=== PATIENT | male | born 1985 | race Caucasian/White ===

== ENCOUNTER 2025-02-18 12:10 | Emergency (ER) | payer OTHER ==
--- OUTSIDE RECORDS SUMMARY | 2025-02-18 12:14 | XMS REPORT | Continuity of Care Document ---
Author Name Unknown Address [address] [facility] [address] [place] [address] [facility] [place] Address [address] [facility]. [address] [place] [address] Care Team Providers Care Rub[employer] Sh[employer] Repairer Name Role Phone Pcp, Patient Does Not Have A Primary Care Physic wally Radiology Attending Clinician Unavailable Andrews Stoll MD Attending Clinician [phone] Campaigns, Generic Provider Attending Clinician Unavailable ERICK MACHADO Attending Clinician UnavailTOD Hernandez Attending Clinician Unavailable TOD ROMERO Attending Clinician Unavailable Tod Galvan Attending Clinician [phone] ERICK MACHADO Admitting Clinician TOD Tomas Admitting Clinician Unavailable Payers Payer Name Policy Type Policy Number Effective Date Expirati on Date Source Allergies, Adverse Reactions, Alerts Allergy Name Allergy Type Status Severity Reaction(s) Onset Date Inactive Date Treating Clinician Comments Source NO KNOWN ALLERGIE S Drug Class Active [facility] Social History Social Habit Start Date Stop Date Quantity Comments Source Sexual orientation U [facility] Sex assigned at 1985 00:00:00 1985 00:00:00 [facility] Smoking Status Start Date Stop Date Source Tobacco smoking consumption unknown [facility] Medications Ordered Medication Name Filled Medication Name Start Date Stop Date Current Medication? Ordering Clinician Indication Dosage Frequency Signature (SIG) Comments Components Source methocarbam oL (ROBAXIN) tablet 500 mg 01-14 03:30: 00 01-14 02:51 :00 No 500mg 500 mg, Oral, ONCE, 1 dose, On Sun01/13/25 at 2230, Routine [facility] proCHLORper azine (COMPAZINE) 10 mg in NaCl 0.9% (NS) piggyback proCHLORper azine (COMPAZINE) 10 mg in NaCl 0.9% (NS) piggyback 01-14 01:30: 00 01-14 01:45 :00 Yes 10mg 10 mg, IV Piggyback, at 100 mL/hr Administer over 30 Minutes, ONCE, 1 dose, On Sun01/13/25 at 2030, Routine [facility] NaCl 0.9% (NS) bolus infusion 1,000 mL 01-14 00:45: 00 01-14 01:00 :00 No 1000mL at 999 mL/hr, 1,000 mL, IV Infusion, ONCE, 1 dose, On Sun01/13/25 at 1945, DEBORAH [facility] metoclopram shanika HCl (REGLAN) injection 10 mg 01-14 00:00: 00 01-14 00:07 :00 No 10mg 10 mg, Slow IV Push, ONCE, 1 dose, On Sun01/13/25 at 1900, DEBORAH [facility] albuterol sulfate HFA 90 mcg/actuati on aerosol inhaler 01-13 22:35: 55 Yes 2{puff} Inhale 2 Puffs every 6 hours as needed for Wheezing or Shortness of Breath. [facility] omeprazole 40 mg capsule 01-13 22:35: 55 Yes 40mg Take 1 capsule by mouth in the morning and 1 capsule in the evening. [facility] cetirizine 10 mg tablet 01-13 22:35: 55 Yes 10mg Take 1 tablet by mouth in the morning. [facility] cholecalcif krupa, vitamin D3, 10 mcg/2 mL (400 unit/2 mL) Drop 01-13 22:35: 55 Yes 50ug Take 50 mcg by mouth in the morning. [facility] DULoxetine 60 mg capsule 01-13 22:35: 55 Yes 120mg Take 2 capsules by mouth in the morning. [facility] fenofibrate 48 mg tablet 01-13 22:35: 55 Yes 48mg Take 1 tablet by mouth in the morning. [facility] fluticasone furoate 50 mcg/actuati on DsDv 01-13 22:35: 55 Yes 50ug Inhale 50 mcg in the morning. [facility] gabapentin ER 300 mg tablet, extended release 24 hr 01-13 22:35: 55 Yes 300mg Take 1 tablet by mouth every 6 hours. [facility] Magnesium Oxide 420 mg Tab 01-13 22:35: 55 Yes 420mg Take 420 mg by mouth in the morning and 420 mg in the evening. [facility] meloxicam 15 mg tablet 01-13 22:35: 55 Yes 15mg Take 1 tablet by mouth in the morning. [facility] mirtazapine 15 mg tablet 01-13 22:35: 55 Yes 15mg Take 1 tablet by mouth at bedtime. [facility] montelukast 10 mg tablet 01-13 22:35: 55 Yes 10mg Take 1 tablet by mouth at bedtime. [facility] QUEtiapine 300 mg tablet 01-13 22:35: 55 Yes 300mg Take 1 tablet by mouth at bedtime. [facility] sumatriptan 100 mg tablet 01-13 22:35: 55 Yes 100mg Take 1 tablet by mouth as needed for Migraine. [facility] topiramate 100 mg tablet 01-13 22:35: 55 Yes 100mg Take 1 tablet by mouth in the morning and 1 tablet in the evening. 100mg morning... 150mg night [facility] methocarbam oL 500 mg tablet 01-13 00:00: 00 01-21 04:59 :00 Yes [id number] 500mg Take 1 tablet by mouth 4 times daily for 7 days. [facility] methocarbam oL (ROBAXIN) tablet 1,000 mg 08-10 19:45: 00 08-10 19:47 :00 No 1000mg 1,000 mg, Oral, ONCE, 1 dose, On 08/10/24 at 1345, DEBORAH [facility] HYDROcodone -acetaminop hen (NORCO 5) tablet 1 tablet 08-10 19:45: 00 08-10 19:47 :00 No 1{tbl} 1 tablet, Oral, ONCE, 1 dose, On 08/10/24 at 1345, DEBORAH [facility] methocarbam oL 500 mg tablet 08-10 00:00: 00 01-13 00:00 :00 No [id number] 1000mg Take 2 tablets by mouth 2 (two) times daily as needed (muscle spasms). [facility] traMADoL 50 mg tablet 08-10 00:00: 00 08-18 05:59 :00 No [id number] 50mg Take 1 tablet by mouth every 8 (eight) hours as needed for Pain (scale 7-10) for up to 7 days. Indication s: acute pain [facility] predniSONE 50 mg tablet 08-10 00:00: 00 08-16 05:59 :00 No [id number] 50mg Take 1 tablet by mouth in the morning for 5 days. [facility] Vital Signs Vital Name Observation Time Observation Value Comments S ource Systolic blood pressure 2025-01-14 03:30:00 115 mm[Hg] [facility] Diastolic blood pressure 2025-01-14 03:30:00 85 mm[Hg] [facility] Heart rate 2025-01-14 03:30:00 67 /min [facility] Body temperature 2025-01-14 03:30:00 37 Loan [facility] Respiratory rate 2025-01-14 03:30:00 21 /min [facility] Oxygen saturation in Arterial blood by Pulse oximetry 2025-01-14 03:30:00 98 /min [facility] Body height 2025-01-13 23:21:00 175.3 cm [facility] Body weight 2025-01-13 23:21:00 108.863 kg [facility] BMI 2025-01-13 23:21:00 35.44 kg/m2 [facility] Systolic blood pressure 2024-08-10 21:59:37 137 mm[Hg] [facility] Diastolic blood pressure 2024-08-10 21:59:37 75 mm[Hg] [facility] Heart rate 2024-08-10 21:59:37 82 /min [facility] Respiratory rate 2024-08-10 21:59:37 18 /min [facility] Oxygen saturation in Arterial blood by Pulse oximetry 2024-08-10 21:59:37 98 /min [facility] Body temperature 2024-08-10 19:29:00 36.78 Loan [facility] Body height 2024-08-10 19:29:00 175.3 cm [facility] Body weight 2024-08-10 19:29:00 108.863 kg [facility] BMI 2024-08-10 19:29:00 35.44 kg/m2 [facility] Procedures Procedure Date / Time Performed Performing Clinicia n Source MR LUMBAR SPINE WO CONTRAST 2025-02-11 21:08:30 Requisition, Paper [facility] MR CERVICAL SPINE WO CONTRAST 2025-02-11 21:03:21 Requisition, Paper [facility] CT HEAD WO CONTRAST 2025-01-14 02:14:33 Ashley Machado [facility] URINALYSIS 2025-01-14 01:02:00 Erick Machado [facility] LACTIC ACID WHOLE BLOOD 2025-01-14 00:03:00 Erick Machado [facility] LIPASE 2025-01-13 23:57:00 Erick Machado [facility] TROPONIN I 2025-01-13 23:57:00 Erick Machado [facility] COMP. METABOLIC PANEL ([id number]) 2025-01-13 23:57:00 Erick Machado [facility] CBC WITH DIFF 2025-01-13 23:57:00 [facility] 2025-01-13 23:57:00 Althea Machado ho [facility] CT SINUS WO CONTRAST 2025-01-13 13:30:38 Narcisa Coker [facility] XR SPINE THORACIC 2 VW 2024-08-10 20:12:47 Allegra Romero cca [facility] XR RIBS 3 VW RIGHT 2024-08-10 20:12:47 Tod Romero [facility] XR LUMBAR SPINE 3 VW 2024-08-10 20:12:47 Diana Romero [facility] Encounters Start Date/Time End Date/Time Encounter Type Admission Type Attending Clinicians Care Facility Care Department Encounter ID Source 2025-02-11 14:50:33 2025-02-11 23:59:00 Hospital Encounter Radiology Radiology [facility] [id number] [id number] [id number] [id number] [facility] 2025-02-11 14:50:24 2025-02-11 23:59:00 Hospital Encounter Radiology Radiology [facility] [id number] 350.1.13.10 [id number] [id number] [facility] 2025-02-05 10:21:47 2025-02-05 23:59:00 Hospital Encounter Andrews Stoll [facility] [id number] [id number] [id number] [id number] [facility] 2025-01-21 00:00:00 2025-01-21 11:06:01 Letter (Out) Campaigns, Generic Provider Campaigns, Generic Provider [facility] (ERICKA) [id number] [id number] 4.2.7.2.686 [id number] [facility] 2025-01-13 18:27:00 2025-01-13 22:35:00 Emergency X ERICK MACHADO [facility] [id number] [facility] 2025-01-13 07:32:30 2025-01-13 18:26:00 Hospital Encounter Radiology [facility]iology [facility] [id number] 350.1.13.10 [id number] [id number] [facility] 2024-08-20 00:00:00 2024-08-20 11:18:01 Letter (Out) Campaigns, Generic Provider Campaigns, Generic Provider [facility] (ERICKA) [id number] 350.1.13.10 4.2.7.2.686 [id number] [facility] 2024-08-10 13:30:00 2024-08-10 16:02:00 Emergency X TOD ROMERO ERICCA [facility] [id number] [facility] 2024-08-10 13:30:00 2024-08-10 16:02:00 Emergency Tod Romero [facility] [id number] 350.1.13.10 4.2.7.2.686 [id number] [facility] 2024-02-21 16:26:08 2024-02-21 16:26:08 Outpatient SFA SFA [id number] Hemant Greene 2024-01-30 09:34:53 2024-01-30 09:34:53 Outpatient SFA SFA [id number] Hemant Greene 2024-01-16 09:45:17 2024-01-16 09:45:17 Outpatient SFA SFA [id number] Hemant Greene 2024-01-02 09:45:42 2024-01-02 09:45:42 Outpatient SFA SFA [id number] Hemant Greene 2023-12-17 14:29:16 2023-12-17 14:29:16 Outpatient SFA SFA [id number] Hemant Greene Results Test Description Test Time Test Comments Results Result Comments Source MR Cervical spine wo contrast 04:08:48 MR CERVICAL SPINE WO CONTRAST HISTORY: 39 years old Male with low neck pain and spasms COMPARISON: None TECHNIQUE: Multiplanar and multisequence MRI imaging of the cervical spinewas obtained without the administration of intravenous contrast FINDINGS: Straightening of normal cervical lordosis is noted. . The vertebral bodiesare normal in height and in normal alignment. The cervical cord is normalin caliber and demonstrates normal signal intensity. Small C7 vertebral body hemangioma seen. The background marrow signal isotherwise unremarkable. Unremarkable atlantodental and atlantoaxialintervals. C2/C3: No significant spinal canal stenosis or neural foraminal narrowing. C3/C4: Tiny central disc protrusion with minimal bilateral uncovertebralspurs with no significant spinal canal stenosis or neural foraminalnarrowing. C4/C5: Shallow posterior disc osteophyte complex with right uncovertebraland bilateral facet joint arthrosis with no significant spinal canalstenosis or neural foraminal narrowing. C5/C6: Mild bilateral facet joint arthrosis. No significant spinal canalstenosis or neural foraminal narrowing. C6/C7: Mild facet joint arthrosis with no significant spinal canal stenosisor neural foraminal narrowing. C7/T1: Mild facet joint arthrosis with no significant spinal canal stenosisor neural foraminal narrowing. The visualized brain and cervical soft tissues are unremarkable. [facility] MR Lumbar spine wo contrast 21:26:57 EXAM: MR LUMBAR SPINE WO CONTRAST HISTORY: Lumbar radiculopathy. TECHNIQUE: MRI of lumbar spine was performed on 1.5 Yashira withoutintravenous contrast. COMPARISON: Lumbar spine radiograph dated 08/10/2024. FINDINGS: Normal lumbar lordosis. The vertebral bodies are normal in height andalignment. The background bone marrow signal is unremarkable. The conus medullaris terminates at L1 and is normal. Cauda equina nerveroots are unremarkable. Prominent Schmorl's node at the superior endplate of L4 vertebral body.Lumbar discs are otherwise normal in height and signal intensity. At L1-L2, no high-grade spinal canal stenosis or significant neuralforaminal narrowing. At L2-L3, no high-grade spinal canal stenosis or significant neuralforaminal narrowing. At L3-L4, mild bilateral facet arthrosis. No high-grade spinal canalstenosis or significant neural foraminal narrowing. At L4-L5, bilateral facet arthrosis and ligamentum flavum thickening. Nohigh-grade spinal canal stenosis or significant neural foraminal narrowing. At L5-S1, small central disc protrusion. No high-grade spinal canalstenosis or significant neural foraminal narrowing. The paraspinal soft tissues are unremarkable. [facility] CT Head wo contrast 02:48:28 CT HEAD WO CONTRAST HISTORY: Headache, sudden, severe Ordering physician: ERICK MACHADO COMPARISON: None. TECHNIQUE: Routine CT of the brain without IV contrast. ? CT scan was performed according to ALARA (as low as reasonably achievable)principle. RESULT: ?There is no evidence of large intraparenchymal hemorrhage, extra-axialfluid collection, or acute territorial infarct. There is no mass effect ormidline shift. There is no depressed cranial fracture. The visualized extracranial softtissues are grossly normal. ? The ventricles and sulci are within normal limits. The visualized paranasal sinuses and mastoid air cells are grossly clear. ? [id number] 15:48:04CT SINUS WO CONTRAST HISTORY: Preoperative assessment for deviated nasal septum COMPARISON: None. TECHNIQUE: CT images of the paranasal sinuses obtained without IV contrast.Multiplanar reformats submitted for review. FINDINGS: The frontal sinuses are clear. The frontal recesses are patent. The anterior air cells are clear.Small retention cyst at the left maxillary sinus. The maxillary sinuses areotherwise clear. The ostiomeatal units are patent. The lamina papyracea are intact. The roof of the ethmoids is symmetric. Thesphenoid septum is deviated to the right. The sphenoid sinuses are clear. The sphenoethmoidal recesses are patent. The posterior ethmoidal air cells are clear. The nasal septum is mildly deviated to the right. The turbinate morphologyis unremarkable. The nasal cavity is clear.[facility] vw [id number] 21:46:32XR RIBS 3 VW RIGHT INDICATION: fall, diffuse back pain, worse on R COMPARISON: None FINDINGS: No acute displaced rib fracture. The lungs are adequately expanded and clear. No pleural effusion orpneumothorax. Cardiomediastinal silhouette is unremarkable. No focalopacities. Cholecystectomy clips.[facility] Thor[facility] 2 [id number] 20:56:16XR THORACIC SPINE 2 VW, XR LUMBAR SPINE 3 VW INDICATION: fall, diffuse back pain COMPARISON: None FINDINGS: Mild kyphosis centered at the thoracolumbar junction. Chronic-appearingmild anterior wedging of the T8-T11 vertebra are seen along the kyphosis. The thoracolumbar vertebral bodies are otherwise normal in height andalignment. Mild thoracolumbar degenerative changes are present. A metallic BBis incidentally noted overlying the lumbar spine on thethoracic radiographs.[facility] 3 [id number] 20:56:16XR THORACIC SPINE 2 VW, XR LUMBAR SPINE 3 VW INDICATION: fall, diffuse back pain COMPARISON: None FINDINGS: Mild kyphosis centered at the thoracolumbar junction. Chronic-appearingmild anterior wedging of the T8-T11 vertebra are seen along the kyphosis. The thoracolumbar vertebral bodies are otherwise normal in height andalignment. Mild thoracolumbar degenerative changes are present. A metallic BBis incidentally noted overlying the lumbar spine on thethoracic radiographs.[facility] Notes Date/Time Note Provider Source 2025-01-13 22:34:54 Awake, alert oriented X4, respiratory even and unlabored,skin w/d color appropriate for race, moves all ext well, pt encouraged to follow up with pcp and or return as needed. Pt given printed and verbal discharge instructions regarding headache and muscle spasms. Patient verbalized understanding and signature obtained, patient denies any other concerns. Prescriptions provided. Discussed Robaxin side affects and to avoid driving/operating machinery/or engaging in activities requiring alertness while taking. Advised to seek medical attention for new/prolonged/worsening of symptoms. No adverse reaction to meds given in ER noted upon discharge. Pt ambulated to the lobby with steady gait. Kareen Hudson RN [facility] 2025-01-13 18:53:53 Patient has brain lesions and has been diagnosed with MS recently. Eli Wilson RN [facility] 2025-01-13 18:21:32 Pt arrived ambulatory without assist. Pt c/o double vision, tingling in hand and feet, dizzy, and migraine. Pt not able to take Toradol because of other medications he takes at home. Beth Barnhart RN [facility] 2025-01-13 18:12:00 [facility] Emergency Department Note Patient Name: Jef Alberto Date of : 1985 39 year old male Treatment Room: [facility] Primary Care Physician: PATIENT DOES NOT HAVE A PCP Patient Escorted by: Self [9] Mode of Arrival: Personal means [1] EMS Treatment Prior to ED Arrival: NURSE SPECIALIST treatment: None Travel and Exposure Screening: Symptoms Does patient have any of these symptoms?: (not recorded) Exposure Screening Has patient had contact with someone with a communicable disease in the last month?: (not recorded) Diseases exposed to:: (not recorded) Is Patient ?: (not recorded) Exposure Date: (not recorded) Chief Complaint: Chief Complaint Patient presents with MIGRAINE Dizziness History of Present Illness: History of Present Illness Patient is a 39-year-old male who presents to the ED for evaluation and treatment due to frontal headache, tingling in the fingers and muscle spasm. He reports his pain is 10/10 on pain severity scale. Patient also reports symptoms accompanied by dizziness. He has not pain in the past and he has been scheduled for an MRI of the brain. Patient is alert oriented x 4. He denies chest pain, shortness of breath, blurry vision, abdominal pain. No History provided by: Patient road crossing guard used: No MIGRAINE Location: Frontal Quality: Spasm Severity: Severe Timing: Constant Progression: Worsening Chronicity: Recurrent Relieved by: Nothing Associated symptoms: no abdominal pain, no chest pain, no diarrhea, no fatigue, no fever, no nausea, no rhinorrhea, no shortness of breath and no vomiting Dizziness Associated symptoms: weakness Associated symptoms: no blood in stool, no chest pain, no diarrhea, no nausea, no palpitations, no shortness of breath and no vomiting Past Medical History/Immunizations: No past medical history on file. Tetanus received in last 5 years: Unknown Allergies: No Known Allergies Past Social History: Substance & Sexual Activity No substance use or sexual activity history on file. Past Surgical History: No past surgical history on file. Review of Systems: Review of Systems Constitutional: Negative for appetite change, fatigue and fever. HENT: Negative for rhinorrhea. Eyes: Negative. Respiratory: Negative for shortness of breath. Cardiovascular: Negative for chest pain and palpitations. Gastrointestinal: Negative for abdominal pain, blood in stool, diarrhea, nausea and vomiting. Musculoskeletal: Negative for back pain. Skin: Negative for color change and pallor. Neurological: Positive for dizziness, weakness and numbness. Physical Exam: Physical Exam ED Triage Vitals [01/13/25 1821] Weight 108.9 kg (240 lb) Actual or estimated Estimated by patient/family report Height 1.753 m (5' 9") BP 134/90 Pulse 84 Resp 18 Temp 37.1 ?C (98.8 ?F) Temp source Oral SpO2 100 % Measured on Room air Physical Exam Vitals and nursing note reviewed. Constitutional: General: He is in acute distress. Appearance: He is well-developed. He is obese. Eyes: Pupils: Pupils are equal, round, and reactive to light. Cardiovascular: Rate and Rhythm: Normal rate. Heart sounds: Normal heart sounds. Pulmonary: Effort: Pulmonary effort is normal. No respiratory distress. Breath sounds: No wheezing. Abdominal: General: There is no distension. Palpations: There is no mass. Tenderness: There is no abdominal tenderness. There is no guarding or rebound. Musculoskeletal: General: Normal range of motion. Cervical back: Normal range of motion. Skin: General: Skin is warm and dry. Neurological: Mental Status: He is alert and oriented to person, place, and time. Cranial Nerves: Cranial nerves 2-12 are intact. Sensory: Sensation is intact. Motor: Motor function is intact. Coordination: Coordination is intact. Radiology: CT Head wo contrast Final Result CT HEAD WO CONTRAST HISTORY: Headache, sudden, severe Ordering physician: ERICK MACHADO COMPARISON: None. TECHNIQUE: Routine CT of the brain without IV contrast. CT scan was performed according to ALARA (as low as reasonably achievable) principle. RESULT: There is no evidence of large intraparenchymal hemorrhage, extra-axial fluid collection, or acute territorial infarct. There is no mass effect or midline shift. There is no depressed cranial fracture. The visualized extracranial soft tissues are grossly normal. The ventricles and sulci are within normal limits. The visualized paranasal sinuses and mastoid air cells are grossly clear. There is disconjugate gaze. IMPRESSION No evidence of acute intracranial process. RL: [id number] Lab Results: Lab Results CBC WITH DIFF - Abnormal Result Value Ref Range WBC 7.93 4.20 - 10.70 10*3/?L RBC 4.87 4.26 - 5.52 10*6/?L HGB 14.3 12.2 - 16.4 g/dL HCT 43.2 38.4 - 49.3 % MCV 88.7 81.7 - 95.6 fL MCH 29.4 26.1 - 32.7 pg MCHC 33.1 31.2 - 35.0 g/dL RDW-SD 42.4 38.5 - 51.6 fL RDW-CV 13.0 12.1 - 15.4 % PLT 311 150 - 328 10*3/?L MPV 9.4 (*) 9.8 - 13.0 fL NRBC/100 WBC 0.0 0.0 - 10.0 /100 WBCs NRBC x10 3 <0.01 10*3/?L GRAN MAT (NEUT) % 57.8 % IMM GRAN % 0.80 % LYMPH % 30.3 % MONO % 8.2 % EOS % 2.0 % BASO % 0.9 % GRAN MAT x10 3 (ANC) 4.59 1.99 - 6.95 10*3/uL IMM GRAN x10 3 0.06 0.00 - 0.06 10*3/uL LYMPH x10 3 2.40 1.09 - 3.23 10*3/uL MONO x10 3 0.65 0.36 - 1.02 10*3/uL EOS x10 3 0.16 0.06 - 0.53 10*3/uL BASO x10 3 0.07 0.01 - 0.09 10*3/uL REACT LYMPHS Moderate URINALYSIS - Abnormal APPEARANCE Cloudy (*) Clear COLOR Yellow Yellow PH 8.0 4.8 - 8.0 SP GRAVITY 1.013 1.003 - 1.030 GLU U QUAL Normal Normal BLOOD Negative Negative KETONES Negative Negative PROTEIN Negative Negative UROBILIN Normal Normal BILIRUBIN Negative Negative NITRITE Negative Negative LEUK PATEL Negative Negative RBC/HPF <1 0 - 3 HPF WBC/HPF 0 0 - 5 HPF BACTERIA Negative Negative AMORPHOUS Moderate (*) Rare HPF COMP. METABOLIC PANEL (41070) - Abnormal NA 141 135 - 145 mmol/L K 4.0 3.5 - 5.0 mmol/L CL 108 98 - 108 mmol/L CO2 TOTAL 23 23 - 31 mmol/L AGAP 10 2 - 16 BUN 17 7 - 23 mg/dL GLUCOSE 92 70 - 110 mg/dL CREATININE 1.35 (*) 0.60 - 1.25 mg/dL TOTAL BILI 0.4 0.1 - 1.1 mg/dL CALCIUM 9.0 8.6 - 10.6 mg/dL T PROTEIN 7.4 6.3 - 8.2 g/dL ALBUMIN 4.6 3.5 - 5.0 g/dL ALK PHOS 41 34 - 122 U/L ALTv 27 5 - 50 U/L AST(SGOT) 26 13 - 40 U/L eGFR 68.9 mL/min/1.73m2 LIPASE - Normal LIPASE 117 0 - 220 U/L TROPONIN I - Normal TROPONIN I 0.000 <=0.034 ng/mL N-TERMINAL PRO-BNP - Normal NT-proBNP <20 <=125 pg/mL LACTIC ACID WHOLE BLOOD - Normal LACTIC ACID 1.12 0.50 - 2.20 mmol/L LACTIC ACID WITH 2 HOUR REFLEX EKG: If EKG completed, see Procedure Note. Orders and Treatments: Orders Placed This Encounter Procedures CT Head wo contrast CBC WITH DIFF URINALYSIS COMP. METABOLIC PANEL (50493) LIPASE TROPONIN I N-TERMINAL PRO-BNP LACTIC ACID WITH 2 HOUR REFLEX Lactic Acid Whole Blood Orders Placed This Encounter Medications NaCl 0.9% (NS) bolus infusion 1,000 mL DISCONTD: ketorolac (TORADOL) injection 30 mg metoclopramide HCl (REGLAN) injection 10 mg albuterol sulfate HFA 90 mcg/actuation aerosol inhaler omeprazole 40 mg capsule cetirizine 10 mg tablet cholecalciferol, vitamin D3, 10 mcg/2 mL (400 unit/2 mL) Drop DULoxetine 60 mg capsule fenofibrate 48 mg tablet fluticasone furoate 50 mcg/actuation DsDv gabapentin ER 300 mg tablet, extended release 24 hr Magnesium Oxide 420 mg Tab meloxicam 15 mg tablet mirtazapine 15 mg tablet montelukast 10 mg tablet QUEtiapine 300 mg tablet sumatriptan 100 mg tablet topiramate 100 mg tablet proCHLORperazine (COMPAZINE) 10 mg in NaCl 0.9% (NS) piggyback methocarbamoL (ROBAXIN) tablet 500 mg methocarbamoL 500 mg tablet First Provider Eval: ED Events Date/Time Event User Comments 01/13/251822 Medical Screening Begins ERICK MACHADO -- 01/13/251822 First Provider Evaluation ERICK MACHADO -- ED COURSE ED Course as of 01/13/252210Jan 13, [id number] Discussed findings and plan of care with patient. Patient will be discharged home with a muscle relaxant and advised to adequately rehydrate. The complication, contraindication of medications, pathophysiology of symptoms, and treatment plans were discussed with the patient / family, who verbalized understanding. Return to ER if your symptoms should worsen or fail to improve within 72 hours. The care provided in the emergency room was for acute problems. You should follow up with your primary care provider within 72 hours. Take all your medications as prescribed. Make sure you are staying adequately hydrated. The patient was discussed with the supervising MD on shift at this time. The supervisor inspection room agreed with the patient plan as documented in the chart. If the supervising MD felt the need he also reviewed the labs, chart and saw the patient on his own. Please see MD supervision signature. [FI] 2207 CT Head wo contrast No evidence of acute intracranial process. [FI] ED Course User Index [FI] Erick Machado FNP Diagnosis/Impression as of 01/13/252210 Headache in front of head Muscle spasm Results Procedures: Procedures MDM: Assessment & Plan Medical Decision Making The patient is resting comfortably and feels better, is alert, interactive and in no distress. The repeat examination is unremarkable and benign. The patient is neurologically intact, has a normal mental status and is ambulatory in the ED. The history, exam, diagnostic testing nd the patient's current condition do not suggest meningitis, stroke, sepsis, subarachnoid hemorrhage, intracranial bleeding, encephalitis or other significant pathology that would warrant further testing, continued ED treatment, admission, neurological consultation, or other specialist evaluation at this point. The vital signs have been stable. The patient's condition is stable and appropriate for discharge. The patient will pursue further outpatient evaluation with the primary care physician or other designated or consulting physician as indicated in the discharge instructions. Amount and/or Complexity of Data Reviewed Labs: ordered. Radiology: ordered. Decision-making details documented in ED Course. Risk Prescription drug management. Flowsheet Documentation: LOC: 0 Alert: Keenly Responsive LOC QUESTIONS: 0 Answers Both Questions Correctly LOC COMMANDS: 0 Performs Both Tasks Correctly BEST GAZE: 0 Normal VISUAL: 0 No Visual Loss FACIAL PALSY: 0 Normal MOTOR ARM-LEFT: 0 No Drift MOTOR ARM-RIGHT: 0 No Drift MOTOR LEG-LEFT: 0 No Drift MOTOR LEG-RIGHT: 0 No Drift LIMB ATAXIA: 0 Absent SENSORY: 0 Normal BEST LANGUAGE: 0 No Aphasia DYSARTHRIA: 0 Normal EXTINCTION AND INATTENTION (FORMERLY NEGLECT): 0 No Abnormalty STROKE SCALE TOTAL SCORE: 0 NIH STROKE SCALE LOC: 0 Alert: Keenly Responsive LOC QUESTIONS: 0 Answers Both Questions Correctly LOC COMMANDS: 0 Performs Both Tasks Correctly BEST GAZE: 0 Normal VISUAL: 0 No Visual Loss FACIAL PALSY: 0 Normal MOTOR ARM-LEFT: 0 No Drift MOTOR ARM-RIGHT: 0 No Drift MOTOR LEG-LEFT: 0 No Drift MOTOR LEG-RIGHT: 0 No Drift LIMB ATAXIA: 0 Absent SENSORY: 0 Normal BEST LANGUAGE: 0 No Aphasia DYSARTHRIA: 0 Normal EXTINCTION AND INATTENTION (FORMERLY NEGLECT): 0 No Abnormalty STROKE SCALE INTERVAL: Other STROKE SCALE TOTAL SCORE: 0 STROKE SCALE INTERVAL: Other STROKE SCALE TOTAL SCORE: 0 Scoring Tools: No data recorded Disposition/Condition: ED Disposition ED Disposition Discharge Condition Stable Comment -- Discharge Medications: Patient's Medications START taking these medications METHOCARBAMOL 500 MG TABLET Take 1 tablet by mouth 4 times daily for 7 days. CONTINUE taking these medications which have NOT CHANGED ALBUTEROL SULFATE HFA 90 MCG/ACTUATION AEROSOL INHALER Inhale 2 Puffs every 6 hours as needed for Wheezing or Shortness of Breath. CETIRIZINE 10 MG TABLET Take 1 tablet by mouth in the morning. CHOLECALCIFEROL, VITAMIN D3, 10 MCG/2 ML (400 UNIT/2 ML) DROP Take 50 mcg by mouth in the morning. DULOXETINE 60 MG CAPSULE Take 2 capsules by mouth in the morning. FENOFIBRATE 48 MG TABLET Take 1 tablet by mouth in the morning. FLUTICASONE FUROATE 50 MCG/ACTUATION DSDV Inhale 50 mcg in the morning. GABAPENTIN ER 300 MG TABLET, EXTENDED RELEASE 24 HR Take 1 tablet by mouth every 6 hours. MAGNESIUM OXIDE 420 MG TAB Take 420 mg by mouth in the morning and 420 mg in the evening. MELOXICAM 15 MG TABLET Take 1 tablet by mouth in the morning. MIRTAZAPINE 15 MG TABLET Take 1 tablet by mouth at bedtime. MONTELUKAST 10 MG TABLET Take 1 tablet by mouth at bedtime. OMEPRAZOLE 40 MG CAPSULE Take 1 capsule by mouth in the morning and 1 capsule in the evening. QUETIAPINE 300 MG TABLET Take 1 tablet by mouth at bedtime. SUMATRIPTAN 100 MG TABLET Take 1 tablet by mouth as needed for Migraine. TOPIRAMATE 100 MG TABLET Take 1 tablet by mouth in the morning and 1 tablet in the evening. 100mg morning... 150mg night START taking Modified Medications as Prescribed No medications on file STOP taking these medications METHOCARBAMOL 500 MG TABLET Take 2 tablets by mouth 2 (two) times daily as needed (muscle spasms). Follow-up: Associated attestation - Lobo Loomis MD - 01/13/2025 10:25 PM CDT Addendum I was personally available for consultation in the Emergency Department during this encounter and patient evaluation by BEE Machado. [facility] 2024-08-10 16:02:19 Patient is awake and alert, oriented x4. Speech is clear and appropriate. Respirations even and unlabored, no distress. Ambulatory with steady gait. Reviewed discharge instructions, follow-up care, verbalizes understanding. [facility] 2024-08-10 13:28:37 Fell two days ago. Complaining of ongoing back pain. Ambulated without obvious gait disturbances. [facility]
[2025-02-18] MEDS ORDERED: ONDANSETRON 4 MG/2 ML VIAL ONE (12:34)
[2025-02-18] MEDS ORDERED: KETOROLAC 30 MG/ML INJ ONE (12:35)
[2025-02-18] MEDS ORDERED: DIPHENHYDRAMINE 50 MG/ML VIAL ONE (12:35)
[2025-02-18] MEDS ORDERED: NA CHLORIDE 0.9% 1,000 ML ONE (12:35)
[2025-02-18 12:49] LABS: Absolute Lymphocytes (CBC) 1.9 K/uL (0.7-4.9); Hematocrit 45.9 % (39.6-49.0); Hemoglobin 15.6 g/dL (13.6-17.9); MCH 28.5 pg (27.0-35.0); MCHC 34.1 g/dL (32.0-36.0); MCV 83.5 fL (80-100); MPV 7.9 fL (7.6-11.3); Nucleated RBC Absolute Count 0.0 (0-0); Nucleated Red Blood Cells % 0.0 % (0-0); RBC Red Blood Cell Count 5.50 M/uL (4.33-5.43); White Blood Count 7.50 thou/uL (4.3-10.9)
[2025-02-18 13:20] LABS: ALT/SGPT 30 U/L (16-61); AST/SGOT 17 U/L (15-37); Albumin 4.0 g/dL (3.4-5.0); Albumin/Globulin Ratio 1.3 (1.1-1.8); Alkaline Phosphatase 48 U/L (45-117); Anion Gap 7.3 mEq/L (5.0-15.0); BUN Blood Urea Nitrogen 20 mg/dL (7-18); Globulin 3.0 g/dL (2.3-3.5); Glucose Level 107 mg/dL (74-106); Potassium 4.3 mEq/L (3.5-5.1)
[2025-02-18 13:25] LABS: NT PRO-BNP < 5 pg/mL (<125); Troponin High Sensitivity < 3.0 pg/mL (<58.9)
[2025-02-18] MEDS ORDERED: ACETAMIN/CAFFEINE/BUTALB TAB PO ONE (14:31)
--- NOTE | 2025-02-18 15:07 | EDPHYS ---
Physician Documentation [facility] Name: Jef Cartagena Age: 39 yrs Sex: Male : 1985 Arrival Date: 02/18/2025 Time: 12:10 Bed 5 Private MD: ED Physician Momo Hu HPI: 02/18 14:25 This 39 yrs old Male presents to ER via Wheelchair with complaints of dr5 Dizziness, Headache. 14:25 Onset: The symptoms/episode began/occurred 2 day(s) ago. Patient is a 39-year-old male dr5 with history of chronic pain coming in with headache, dizziness when standing upright. Patient reports that all pain resolves when he lays flat. Patient reports that he had LP completed 2 days ago under fluoroscopy. He reports that they attempted once without success and attempted again with success. Patient reports he called Dr. Blankenship for assistance and was recommended to come here.. Historical: - Allergies: 12:23 No Known Allergies; me1 - PMHx: 12:23 Headache; Chronic pain; me1 - PSHx: 12:23 R shoulder; me1 - Immunization history:: Adult Immunizations up to date. - Infectious Disease History:: Denies. - Social history:: Smoking status: Patient reports the use of cigarette tobacco products, cigars. ROS: 14:26 Constitutional: as per hpi dr5 Exam: 14:26 Constitutional: This is a well developed, well nourished patient who is awake, alert, dr5 and in no acute distress. Head/Face: Normocephalic, atraumatic. Eyes: Pupils equal round and reactive to light, extra-ocular motions intact. Lids and lashes normal. Conjunctiva and sclera are non-icteric and not injected. Cornea within normal limits. Periorbital areas with no swelling, redness, or edema. Neck: Trachea midline, no thyromegaly or masses palpated, and no cervical lymphadenopathy. Supple, full range of motion without nuchal rigidity, or vertebral point tenderness. No Meningismus. Chest/axilla: Normal chest wall appearance and motion. Nontender with no deformity. No lesions are appreciated. Cardiovascular: Regular rate and rhythm with a normal S1 and S2. Normal PMI, no JVD. No pulse deficits. Respiratory: Lungs have equal breath sounds bilaterally, clear to auscultation. No rales, rhonchi or wheezes noted. No increased work of breathing, no retractions or nasal flaring. Back: No spinal tenderness. No costovertebral tenderness. Full range of motion. Skin: Warm, dry with normal turgor. Normal color with no rashes, no lesions, and no evidence of cellulitis. MS/ Extremity: Pulses equal, no cyanosis. Neurovascular intact. Full, normal range of motion. Neuro: Awake and alert, GCS 15, oriented to person, place, time, and situation. Cranial nerves II-XII grossly intact. Motor strength 5/5 in all extremities. Sensory grossly intact. Cerebellar exam normal. Normal gait. Vital Signs: 12:22 BP 117 / 66; Pulse 73; Resp 18; Temp 98; Pulse Ox 100% ; Weight 110.68 kg; Height 5 ft. me1 9 in. ; Pain 0/10; 13:32 BP 114 / 66; Pulse 68; Resp 18; Pulse Ox 100% on R/A; ph 15:49 BP 112 / 64; Pulse 70; Resp 18; Temp 97.9; Pulse Ox 98% on R/A; ph 12:22 Body Mass Index 36.03 (110.68 kg, 175.26 cm) me1 12:22 Pain Scale: Adult me1 MDM: 12:15 Medical Screening Exam initiated dr5 14:26 Management of patient was discussed with the following: Kiln Mechanic: Dr. Lainez dr5 (anesthesiologist on-call) who recommended high doses of caffeine and hydration. She states that caffeine will produce CSF quicker and hydration. Recommended increase hide nutrition and caffeine over the next few days and headache should eventually resolve. I recommended blood patch but she wants to try caffeine first. Will trial caffeine and give him strict ER precautions if it does not improve for a blood patch.. 18:05 Differential diagnosis: vertigo, Post LP headache, electrolyte abnormality, NSTEMI. dr5 Data reviewed: vital signs, nurses notes, lab test result(s), CBC, white blood cell count, hemoglobin, hematocrit, platelets, electrolytes, sodium, potassium, chloride, serum bicarbonate, BUN, creatinine, serum glucose. Consideration of Admission/Observation Escalation of care including admission/observation considered. Escalation considered if patient's headache did not improve at all.. I considered the following discharge prescriptions or medication management in the emergency department I discussed and recommended Over The Counter medications, Medications were administered in the Emergency Department. See MAR. Care significantly affected by the following chronic conditions: Chronic Pain. Care significantly affected by the following Social Determinants of Health: Poor access to healthcare and/or lack of insurance, Poor access to transportation, Problems related to employment. Counseling: I had a detailed discussion with the patient and/or guardian regarding the historical points, exam findings, and any diagnostic results supporting the discharge/admit diagnosis, the presence of at least one elevated blood pressure reading (>120/80) during this emergency department visit, lab results, radiology results, the need for outpatient follow up, for definitive care, a family practitioner, to return to the emergency department if symptoms worsen or persist or if there are any questions or concerns that arise at home. Response to treatment: the patient's symptoms have mildly improved after treatment. Special discussion: Based on the history and exam findings, there is no indication for further emergent testing or inpatient evaluation. I discussed with the patient/guardian the need to see the primary care provider for further evaluation of the symptoms. ED course: Will trial patient on caffeine for the next couple days and if pain does not resolve or improve to return to ER for blood patch. Patient is agreeable to plan. Patient to follow-up with Dr. Blankenship. All questions answered. Strict ER precautions given.. 02/18 12:16 Order name: CBC with Diff; Complete Time: 12:53 [facility] 02/18 12:16 Order name: NT PRO-BNP; Complete Time: 13:29 [facility] 02/18 12:16 Order name: Troponin HS; Complete Time: 13:29 [facility] 02/18 12:16 Order name: CMP; Complete Time: 13:29 [facility] 02/18 12:16 Order name: Cardiac monitoring; Complete Time: 12:45 [facility] 02/18 12:16 Order name: EKG - Nurse/Tech; Complete Time: 12:45 [facility] 02/18 12:16 Order name: IV Saline Lock; Complete Time: 12:45 [facility] 02/18 12:16 Order name: Labs collected and sent; Complete Time: 12:45 [facility] 02/18 12:16 Order name: O2 Per Protocol; Complete Time: 12:45 [facility] 02/18 12:16 Order name: O2 Sat Monitoring; Complete Time: 12:45 [facility] EC:34 Rate is 71 beats/min. Rhythm is regular. QRS [place] is Normal. DC interval is normal at dr5 158 msec. QRS interval is normal at 102 msec. QT interval is normal at 380 msec. Administered Medications: 12:44 Drug: Ketorolac IVP 15 mg IVP once Route: IVP; Site: left antecubital; ph 13:32 Follow up: Response: No adverse reaction ph 12:44 Drug: diphenhydrAMINE IVP 25 mg IVP once Route: IVP; Site: left antecubital; ph 13:32 Follow up: Response: No adverse reaction ph 12:44 Drug: Dexamethasone IVP 10 mg IVP once; (not to exceed 40 mg) Route: IVP; Site: left ph antecubital; 13:32 Follow up: Response: No adverse reaction ph 12:44 Drug: Ondansetron IVP 4 mg IVP once; over 2 minutes Route: IVP; Site: left antecubital; ph 13:27 Follow up: Response: No adverse reaction ph 12:45 Drug: NS 0.9% IV 1000 ml IV at 1000 ml once; to be given as a bolus over 60 minutes ph Route: IV; Rate: 1000 ml; Site: left antecubital; 13:32 Follow up: Response: No adverse reaction; IV Status: Completed infusion; IV Intake: ph 1000ml 14:38 Drug: Fioricet - Esgic PO 325 mg-40 mg-50 mg 1 tab-caps PO once Route: PO; hb 15:49 Follow up: Response: No adverse reaction ph Disposition Summary: 02/18/25 15:06 Discharge Ordered Notes: Location: Home dr5 Condition: Stable dr5 Diagnosis - Headache dr5 Followup: dr5 - With: Emergency Department - When: As needed - Reason: Worsening of condition Followup: dr5 - With: George Blankenship MD - When: 1 week - Reason: Recheck today's complaints, Continuance of care, Re-evaluation by your physician Discharge Instructions: - Discharge Summary Sheet dr5 - Migraine Headache dr5 Forms: - Medication Reconciliation Form dr5 - Antibiotic Education dr5 - Patient Portal Instructions dr5 - Leadership Thank You Letter dr5 Prescriptions: - Fioricet 50-300-40 mg Oral capsule - take 1 capsule ORAL route every 8 hours as needed for pain; 30 capsule; dr5 Refills: 0, Product Selection Permitted - Zofran 4 mg Oral Tablet - take 1 tablet ORAL route every 12 hours As needed; 20 tablet; Refills: 0, dr5 Product Selection Permitted - Tramadol 50 mg Oral Tablet - take 1 tablet ORAL route every 8 hours as needed; 12 tablet; Refills: 0, dr5 Product Selection Permitted Signatures: Dispatcher [employer] Dannielle Iraheta, RN RN Enriqueta Leon, RN ARMAND Christelle Cornejo RN RN mo1 Kana Kennedy, STAFF MIDWIFE-C STAFF MIDWIFE-Cdr5
--- NOTE | 2025-02-18 15:07 | ER ---
Nurse's Notes [facility] Name: Jef Cartagena Age: 39 yrs Sex: Male : 1985 Arrival Date: 02/18/2025 Time: 12:10 Bed 5 Private MD: Diagnosis: Headache Presentation: 02/18 12:22 Chief complaint: Patient states: s/p lumbar puncture on Sunday. c/o migraine, dizziness me1 and nausea when sitting or standing since. No symptoms when lying supine. Coronavirus screen: Vaccine status: Patient reports receiving the 2nd dose of the covid vaccine. Ebola Screen: No symptoms or risks identified at this time. Initial Sepsis Screen: Does the patient meet any 2 criteria? No. Patient's initial sepsis screen is negative. Does the patient have a suspected source of infection? No. Patient's initial sepsis screen is negative. Risk Assessment: Do you want to hurt yourself or someone else? Patient reports no desire to harm self or others. Onset of symptoms was February 16, 2025. 12:22 Method Of Arrival: Wheelchair me1 12:22 Acuity: SALUD 3 me1 Historical: - Allergies: 12:23 No Known Allergies; me1 - PMHx: 12:23 Headache; Chronic pain; me1 - PSHx: 12:23 R shoulder; me1 - Immunization history:: Adult Immunizations up to date. - Infectious Disease History:: Denies. - Social history:: Smoking status: Patient reports the use of cigarette tobacco products, cigars. Screenin:33 [facility] ED Fall Risk Assessment (Adult) History of falling in the last 3 months, ph including since admission No falls in past 3 months (0 pts) Confusion or Disorientation No (0 pts) Intoxicated or Sedated No (0 pts) Impaired Gait No (0 pts) Mobility Assist Device Used Yes (1 pt) Altered Elimination No (0 pt) Score/Fall Risk Level 0 - 2 = Low Risk Oriented to surroundings, Maintained a safe environment, Hourly rounding (assess needs \T\ fall precautionary measures) done, Used ambulatory aids as needed (educated on \T\ assisted with). Abuse screen: Denies threats or abuse. Denies injuries from another. Nutritional screening: No deficits noted. Tuberculosis screening: No symptoms or risk factors identified. Assessment: 12:45 General: Appears in no apparent distress. comfortable, well groomed, Behavior is calm, ph cooperative, appropriate for age. Pain: Complains of pain in headache. Neuro: Level of Consciousness is awake, alert, obeys commands, Oriented to person, place, time, situation, Reports dizziness, headache. Cardiovascular: Capillary refill < 3 seconds in bilateral fingers Patient's skin is warm and dry. Rhythm is sinus rhythm. Respiratory: Airway is patent Respiratory effort is even, unlabored. GI: Reports nausea. Derm: Skin is pink, warm \T\ dry. 14:39 Reassessment: Patient appears in no apparent distress at this time. Patient and/or hb family updated on plan of care and expected duration. Pain level reassessed. Patient is alert, oriented x 3, equal unlabored respirations, skin warm/dry/pink. Vital Signs: 12:22 BP 117 / 66; Pulse 73; Resp 18; Temp 98; Pulse Ox 100% ; Weight 110.68 kg; Height 5 ft. me1 9 in. ; Pain 0/10; 13:32 BP 114 / 66; Pulse 68; Resp 18; Pulse Ox 100% on R/A; ph 15:49 BP 112 / 64; Pulse 70; Resp 18; Temp 97.9; Pulse Ox 98% on R/A; ph 12:22 Body Mass Index 36.03 (110.68 kg, 175.26 cm) me1 12:22 Pain Scale: Adult me1 ED Course: 12:13 Patient arrived in ED. al6 12:14 Kana Kennedy FNP-C [facility]. dr5 12:14 Momo Hu MD is Attending Physician. dr5 12:23 Triage completed. me1 12:24 Arm band placed on Patient placed in an exam room. me1 12:43 Inserted saline lock: 20 gauge in left antecubital area, using aseptic technique. Blood ts3 collected. Flushed with 10 mL NS. 12:44 Dannielle Watson, RN is Primary Nurse. ph 12:45 CBC with Diff Sent. ph 12:45 NT PRO-BNP Sent. ph 12:45 Troponin HS Sent. ph 12:45 CMP Sent. ph 12:48 Initial lab(s) drawn, by laborer carpentry dock, sent to lab. ts3 12:48 EKG done, by heat treat technician. ts3 13:33 Patient has correct armband on for positive identification. Bed in low position. Call ph light in reach. Side rails up X 1. cardiac monitor technician on. Pulse ox on. NIBP on. 15:06 George Blankenship MD is Referral Physician. dr5 15:49 No provider procedures requiring assistance completed. IV discontinued, intact, ph bleeding controlled, No redness/swelling at site. Pressure dressing applied. Administered Medications: 12:44 Drug: Ketorolac IVP 15 mg IVP once Route: IVP; Site: left antecubital; ph 13:32 Follow up: Response: No adverse reaction ph 12:44 Drug: diphenhydrAMINE IVP 25 mg IVP once Route: IVP; Site: left antecubital; ph 13:32 Follow up: Response: No adverse reaction ph 12:44 Drug: Dexamethasone IVP 10 mg IVP once; (not to exceed 40 mg) Route: IVP; Site: left ph antecubital; 13:32 Follow up: Response: No adverse reaction ph 12:44 Drug: Ondansetron IVP 4 mg IVP once; over 2 minutes Route: IVP; Site: left antecubital; ph 13:27 Follow up: Response: No adverse reaction ph 12:45 Drug: NS 0.9% IV 1000 ml IV at 1000 ml once; to be given as a bolus over 60 minutes ph Route: IV; Rate: 1000 ml; Site: left antecubital; 13:32 Follow up: Response: No adverse reaction; IV Status: Completed infusion; IV Intake: ph 1000ml 14:38 Drug: Fioricet - Esgic PO 325 mg-40 mg-50 mg 1 tab-caps PO once Route: PO; hb 15:49 Follow up: Response: No adverse reaction ph Medication: 13:33 VIS not applicable for this client. ph Intake: 13:32 IV: 1000ml; Total: 1000ml. ph Outcome: 15:06 Discharge ordered by . dr5 15:49 Discharged to home ambulatory, with friend, ph 15:49 Condition: good 15:49 Discharge instructions given to patient, Instructed on discharge instructions, follow up and referral plans. medication usage, Demonstrated understanding of instructions, follow-up care, medications, Prescriptions given X 3, 16:05 Patient left the ED. ph Signatures: Dannielle Watson RN RN Enriqueta Leon RN RN Christelle Cornejo RN RN me1 Kana Kennedy, EARLY CHILDHOOD EDUCATION SPECIALIST-C EARLY CHILDHOOD EDUCATION SPECIALIST-Cdr5 Jennifer Ramos al6 Sepideh Sanchez ts3
[2025-02-18 16:21] VITALS: BP 112/64; TEMP 97.9; O2SAT 98
== END 2025-02-18 16:05 | disposition home or self-care (01) ==
LOC: ER 12:10
DX: R51.9 Headache, unspecified (principal); F17.290 Nicotine dependence, other tobacco product, uncomplicated
CPT/HCPCS: 96361; 85025; 36415; 84484; 80053; 83880; 96375; 96374; 99285; J1200; J1100; J2405; J7030

== ENCOUNTER 2025-05-06 07:59 | Emergency (ER) | payer OTHER ==
[2025-05-06] MEDS ORDERED: NA CHLORIDE 0.9% 1,000 ML ONE (08:20)
[2025-05-06] MEDS ORDERED: IBUPROFEN 400 MG TAB ONE (08:20)
[2025-05-06] MEDS ORDERED: ACETAMINOPHEN 500 MG TAB ONE (08:20)
[2025-05-06 08:57] LABS: Absolute Lymphocytes (CBC) 1.7 K/uL (0.7-4.9); Hematocrit 41.7 % (39.6-49.0); Hemoglobin 14.2 g/dL (13.6-17.9); MCH 28.1 pg (27.0-35.0); MCHC 34.2 g/dL (32.0-36.0); MCV 82.1 fL (80-100); MPV 8.4 fL (7.6-11.3); Nucleated RBC Absolute Count 0.0 (0-0); Nucleated Red Blood Cells % 0.0 % (0-0); RBC Red Blood Cell Count 5.07 M/uL (4.33-5.43); White Blood Count 6.50 thou/uL (4.3-10.9)
[2025-05-06 09:09] LABS: ALT/SGPT 19.0 U/L (16-61); AST/SGOT 11.0 U/L (15-37); Albumin 3.7 g/dL (3.4-5.0); Albumin/Globulin Ratio 1.0 (1.1-1.8); Alkaline Phosphatase 47.0 U/L (45-117); Anion Gap 7.9 mEq/L (5.0-15.0); BUN Blood Urea Nitrogen 12.0 mg/dL (7-18); Globulin 3.6 g/dL (2.3-3.5); Glucose Level 91.0 mg/dL (74-106); Potassium 3.9 mEq/L (3.5-5.1)
[2025-05-06] MEDS ORDERED: NA CHLORIDE 0.9% 100 ML ONE (09:25)
[2025-05-06] MEDS ORDERED: METHOCARBAMOL 1,000 MG/10 ML VIAL ONE (09:25)
[2025-05-06 09:52] LABS: Influenza A Ag Negative; Influenza B Ag Negative; SARS-CoV-2 Antigen Rapid Res Negative (Negative)
[2025-05-06] MEDS ORDERED: ONDANSETRON 4 MG/2 ML VIAL ONE (11:49)
--- NOTE | 2025-05-06 11:49 | ER ---
Nurse's Notes [facility] Name: Jef Cartagena Age: 39 yrs Sex: Male : 1985 Arrival Date: 05/06/2025 Time: 07:59 Bed 15 Private MD: Diagnosis: Headache-SPINAL HEADACHE Presentation: 05/06 08:07 Chief complaint: Patient states: MIGRAINE SINCE SUNDAY WITH PHOTOPHOBIA AND NAUSEA, GEN bp PAIN FROM MS. Coronavirus screen: At this time, the client does not indicate any symptoms associated with coronavirus-19. Ebola Screen: No symptoms or risks identified at this time. Initial Sepsis Screen: Does the patient meet any 2 criteria? No. Patient's initial sepsis screen is negative. Does the patient have a suspected source of infection? No. Patient's initial sepsis screen is negative. Risk Assessment: Do you want to hurt yourself or someone else? Patient reports no desire to harm self or others. Onset of symptoms is unknown. 08:07 Method Of Arrival: Ambulatory bp 08:07 Acuity: SALUD 3 bp Triage Assessment: 08:17 Headache History: The patient has had previous headaches and this one is similar to bp previous episodes. General: Appears in no apparent distress. uncomfortable, Behavior is calm, cooperative, appropriate for age. Pain: Complains of pain in head Pain currently is 5 out of 10 on a pain scale. Pain began 1 day ago. Also complains of nausea, photophobia. EENT: No deficits noted. Neuro: Reports headache. Cardiovascular: No deficits noted. Respiratory: No deficits noted. GI: Reports nausea. : No signs and/or symptoms were reported regarding the genitourinary system. Derm: No deficits noted. Musculoskeletal: No deficits noted. Historical: - Allergies: 08:17 No Known Allergies; bp - PMHx: 08:17 Chronic pain; headache; Multiple sclerosis; bp - PSHx: 08:17 R shoulder; bp - Immunization history:: Adult Immunizations up to date. - Infectious Disease History:: Denies. - Social history:: Smoking status: Patient denies any tobacco usage or history of. - Family history:: not pertinent. Screenin:20 [facility] ED Fall Risk Assessment (Adult) History of falling in the last 3 months, cc6 including since admission No falls in past 3 months (0 pts) Confusion or Disorientation No (0 pts) Intoxicated or Sedated No (0 pts) Impaired Gait No (0 pts) Mobility Assist Device Used Yes (1 pt) Altered Elimination No (0 pt) Score/Fall Risk Level 0 - 2 = Low Risk Oriented to surroundings, Maintained a safe environment, Hourly rounding (assess needs \T\ fall precautionary measures) done. Abuse screen: Denies threats or abuse. Denies injuries from another. Nutritional screening: No deficits noted. Tuberculosis screening: No symptoms or risk factors identified. Assessment: 08:15 General: Appears in no apparent distress. uncomfortable, Behavior is calm, cooperative, cc6 appropriate for age. Pain: Complains of pain in forehead Pain does not radiate. Pain currently is 4 out of 10 on a pain scale. at worst was 10 out of 10 on a pain scale. Quality of pain is described as shooting. Neuro: Level of Consciousness is awake, alert, obeys commands, Oriented to person, place, time, situation. Cardiovascular: Patient's skin is warm and dry. Respiratory: Airway is patent Respiratory effort is even, unlabored, Respiratory pattern is regular, symmetrical. GI: No signs and/or symptoms were reported involving the gastrointestinal system. : No signs and/or symptoms were reported regarding the genitourinary system. EENT: No signs and/or symptoms were reported regarding the EENT system. Derm: No signs and/or symptoms reported regarding the dermatologic system. Musculoskeletal: No signs and/or symptoms reported regarding the musculoskeletal system. 09:21 Reassessment: Patient and/or family updated on plan of care and expected duration. Pain cc6 level reassessed. Patient is alert, oriented x 3, equal unlabored respirations, skin warm/dry/pink. 11:51 Reassessment: Anesthesiologist at bedside for blood patch. ph Vital Signs: 08:07 BP 131 / 71; Pulse 81; Resp 16; Temp 98; Pulse Ox 100% ; bp 09:30 BP 115 / 74; Pulse 56; Resp 100; Pulse Ox 100% on R/A; cc6 10:00 BP 122 / 76; Pulse 54; Resp 20; Pulse Ox 100% on R/A; cc6 11:30 BP 119 / 64; Pulse 56; Resp 16; Pulse Ox 100% on R/A; cc6 12:45 BP 116 / 70; Pulse 58; Resp 16; Pulse Ox 100% on R/A; cc6 13:30 BP 123 / 69; Pulse 57; Resp 20; Pulse Ox 100% on R/A; cc6 14:57 BP 126 / 67; Pulse 50; Resp 18; Pulse Ox 100% on R/A; cc6 Valeria Coma Score: 10:52 Eye Response: spontaneous(4). Motor Response: obeys commands(6). Verbal Response: shilpa oriented(5). Total: 15. ED Course: 08:02 Patient arrived in ED. im 08:02 Jaquan Becerril MD is Attending Physician. shilpa 08:08 Triage completed. bp 08:08 Arm band placed on. bp 08:20 Bed in low position. Call light in reach. Side rails up X 1. Provided Education on: use cc6 of call light. . 08:25 CMP Sent. bc6 08:25 CBC with Diff Sent. bc6 08:25 Initial lab(s) drawn, by va, sent to lab. Inserted saline lock: 20 gauge in right bc6 antecubital area, using aseptic technique. Blood collected. Flushed with 10 mL NS. 08:29 Bisi John, RN is Primary Nurse. cc6 11:48 George Blankenship MD is Referral Physician. [facility] 11:51 Assisted provider with: Dr. Vasquez spinal blood patch. cc6 14:51 IV discontinued, intact, bleeding controlled, No redness/swelling at site. Pressure cc6 dressing applied. Administered Medications: 08:29 Drug: NS 0.9% IV 1000 ml IV at 1000 ml once; to be given as a bolus over 60 minutes cc6 Route: IV; Rate: 1000 ml; Site: left antecubital; 14:52 Follow up: Response: No adverse reaction; IV Status: Completed infusion cc6 08:29 Drug: Acetaminophen PO 1000 mg PO once Route: PO; cc6 14:53 Follow up: Response: No adverse reaction cc6 08:29 Drug: Ibuprofen PO 600 mg PO once Route: PO; cc6 14:53 Follow up: Response: No adverse reaction cc6 09:31 Drug: Methocarbamol IVPB 1 grams IVPB once over 1 hrs; (mix in NS 100 mL) Route: IVPB; ph Infused Over: 1 hrs; Site: right antecubital; 14:52 Follow up: Response: No adverse reaction; IV Status: Completed infusion cc6 Medication: 14:51 VIS not applicable for this client. cc6 Outcome: 11:49 Discharge ordered by . shilpa 14:50 Discharged to home ambulatory, cc6 14:50 Condition: stable 14:50 Discharge instructions given to patient, Instructed on discharge instructions, follow up and referral plans. medication usage, Demonstrated understanding of instructions, follow-up care, medications, Prescriptions given X 2, 14:58 Patient left the ED. cc6 Signatures: Jaquan Becerril MD MD cha Hall, Patricia, RN RN Weston Jeffries, RN RN Gilda Luong Zarina Viveros Cassandra, RN RN cc6
--- NOTE | 2025-05-06 11:49 | EDPHYS ---
Physician Documentation [facility] Name: Jef Cartagena Age: 39 yrs Sex: Male : 1985 Arrival Date: 05/06/2025 Time: 07:59 Bed 15 Private MD: MAHESH Physician Jaquan Becerril HPI: 05/06 10:38 This 39 yrs old Male presents to ER via Ambulatory with complaints of Pain shilpa All Over, Headache. 10:38 The patient complains of pain to the top of head, forehead, left frontal area and left shilpa side of the back of head. The patient describes the headache as intermittent. Onset: The symptoms/episode began/occurred 5 day(s) ago. Associated signs and symptoms: Pertinent positives: nausea. Severity of symptoms: At its worst the pain was moderate, in the emergency department the pain is unchanged. Headache History: The patient has had previous headaches and this one is similar to previous episodes. The symptoms are alleviated by remaining still, sleep, the symptoms are aggravated by movement, upright. The patient has not experienced similar symptoms in the past, but family has similar symptoms. Historical: - Allergies: 08:17 No Known Allergies; bp - PMHx: 08:17 Chronic pain; headache; Multiple sclerosis; bp - PSHx: 08:17 R shoulder; bp - Immunization history:: Adult Immunizations up to date. - Infectious Disease History:: Denies. - Social history:: Smoking status: Patient denies any tobacco usage or history of. - Family history:: not pertinent. ROS: 10:38 Constitutional: Negative for fever, chills, and weight loss, Eyes: Negative for injury, shilpa pain, redness, and discharge, ENT: Negative for injury, pain, and discharge, Neck: Negative for injury, pain, and swelling, Cardiovascular: Negative for chest pain, palpitations, and edema, Respiratory: Negative for shortness of breath, cough, wheezing, and pleuritic chest pain, Abdomen/GI: Negative for abdominal pain, nausea, vomiting, diarrhea, and constipation, Back: Negative for injury and pain, : Negative for injury, bleeding, discharge, and swelling, MS/Extremity: Negative for injury and deformity, Skin: Negative for injury, rash, and discoloration, Psych: Negative for depression, anxiety, suicide ideation, homicidal ideation, and hallucinations, Allergy/Immunology: Negative for hives, rash, and allergies, Endocrine: Negative for neck swelling, polydipsia, polyuria, polyphagia, and marked weight changes, Hematologic/Lymphatic: Negative for swollen nodes, abnormal bleeding, and unusual bruising, 10:38 Neuro: Positive for headache, Exam: 10:49 Constitutional: This is a well developed, well nourished patient who is awake, alert, shilpa and in no acute distress. Head/Face: Normocephalic, atraumatic. Eyes: Pupils equal round and reactive to light, extra-ocular motions intact. Lids and lashes normal. Conjunctiva and sclera are non-icteric and not injected. Cornea within normal limits. Periorbital areas with no swelling, redness, or edema. ENT: Nares patent. No nasal discharge, no septal abnormalities noted. Tympanic membranes are normal and external auditory canals are clear. Oropharynx with no redness, swelling, or masses, exudates, or evidence of obstruction, uvula midline. Mucous membranes moist. Neck: Trachea midline, no thyromegaly or masses palpated, and no cervical lymphadenopathy. Supple, full range of motion without nuchal rigidity, or vertebral point tenderness. No Meningismus. Chest/axilla: Normal chest wall appearance and motion. Nontender with no deformity. No lesions are appreciated. Cardiovascular: Regular rate and rhythm with a normal S1 and S2. No gallops, murmurs, or rubs. Normal PMI, no JVD. No pulse deficits. Respiratory: Lungs have equal breath sounds bilaterally, clear to auscultation and percussion. No rales, rhonchi or wheezes noted. No increased work of breathing, no retractions or nasal flaring. Abdomen/GI: Soft, non-tender, with normal bowel sounds. No distension or tympany. No guarding or rebound. No evidence of tenderness throughout. Back: No spinal tenderness. No costovertebral tenderness. Full range of motion. Male : Normal genitalia with no discharge or lesions. Skin: Warm, dry with normal turgor. Normal color with no rashes, no lesions, and no evidence of cellulitis. MS/ Extremity: Pulses equal, no cyanosis. Neurovascular intact. Full, normal range of motion., bilateral aka Psych: Awake, alert, with orientation to person, place and time. Behavior, mood, and affect are within normal limits. 10:49 Neuro: Orientation: is normal, appropriate for stated age, no acute changes, Mentation: is normal, appropriate for stated age, no acute changes, Memory: is normal, appropriate for stated age, no acute changes, Cranial nerves: grossly normal, is grossly normal based on the patient's age, no acute changes, Cerebellar function: is grossly normal, is grossly normal based on the patient's age, no acute changes, Motor: is normal, is grossly normal based on the patient's age, no acute changes, moves all fours, Sensation: is normal, Gait: not tested. Deep tendon reflexes are 2+ (normal) in the bilateral brachioradialis, bicep, tricep and patellar and Achilles tendons, Babinski testing is normal, seizure activity, is not displayed by the patient, Vital Signs: 08:07 BP 131 / 71; Pulse 81; Resp 16; Temp 98; Pulse Ox 100% ; bp 09:30 BP 115 / 74; Pulse 56; Resp 100; Pulse Ox 100% on R/A; cc6 10:00 BP 122 / 76; Pulse 54; Resp 20; Pulse Ox 100% on R/A; cc6 11:30 BP 119 / 64; Pulse 56; Resp 16; Pulse Ox 100% on R/A; cc6 12:45 BP 116 / 70; Pulse 58; Resp 16; Pulse Ox 100% on R/A; cc6 13:30 BP 123 / 69; Pulse 57; Resp 20; Pulse Ox 100% on R/A; cc6 14:57 BP 126 / 67; Pulse 50; Resp 18; Pulse Ox 100% on R/A; cc6 Valeria Coma Score: 10:52 Eye Response: spontaneous(4). Motor Response: obeys commands(6). Verbal Response: shilpa oriented(5). Total: 15. MDM: 08:02 Medical Screening Exam initiated shilpa 10:52 Differential diagnosis: cluster headache, epidural hematoma, hypoglycemia, shilpa hyponatremia, meningoencephalitis, migraine, neoplasm, post lumbar puncture headache, sinusitis, trigeminal neuralgia, uremia, vasomotor headache. Data reviewed: vital signs, nurses notes, lab test result(s), radiologic studies. Consideration of Admission/Observation Escalation of care including admission/observation considered. I considered the following discharge prescriptions or medication management in the emergency department Medications were administered in the Emergency Department. See MAR. Test considered but Not performed: CT: no ct head. Care significantly affected by the following chronic conditions: Hypertension, chronic pain, MS. 05/06 08:03 Order name: CBC with Diff; Complete Time: 10:13 [facility] 05/06 08:03 Order name: CMP; Complete Time: 10:13 [facility] 05/06 08:03 Order name: COVID-19 Ag + Flu A+B Ag; Complete Time: 10:13 [facility] 05/06 10:19 Order name: Misc. Order: Spinal blood patch; Complete Time: 14:52 shilpa Administered Medications: 08:29 Drug: NS 0.9% IV 1000 ml IV at 1000 ml once; to be given as a bolus over 60 minutes cc6 Route: IV; Rate: 1000 ml; Site: left antecubital; 14:52 Follow up: Response: No adverse reaction; IV Status: Completed infusion cc6 08:29 Drug: Acetaminophen PO 1000 mg PO once Route: PO; cc6 14:53 Follow up: Response: No adverse reaction cc6 08:29 Drug: Ibuprofen PO 600 mg PO once Route: PO; cc6 14:53 Follow up: Response: No adverse reaction cc6 09:31 Drug: Methocarbamol IVPB 1 grams IVPB once over 1 hrs; (mix in NS 100 mL) Route: IVPB; ph Infused Over: 1 hrs; Site: right antecubital; 14:52 Follow up: Response: No adverse reaction; IV Status: Completed infusion cc6 Disposition Summary: 05/06/25 11:49 Discharge Ordered Notes: Location: Home shilpa Problem: new shilpa Symptoms: have improved shilpa Condition: Stable shilpa Diagnosis - Headache - SPINAL HEADACHE shilpa Followup: shilpa - With: Private Physician - When: 2 - 3 days - Reason: Recheck today's complaints, Continuance of care, Re-evaluation by your physician Followup: shilpa - With: George Blankenship MD - When: 2 - 3 days - Reason: Recheck today's complaints, Re-evaluation by your physician Discharge Instructions: - Discharge Summary Sheet shilpa - Epidural Blood Patch for Spinal Headache shilpa - Epidural Blood Patch for Spinal Headache, Care After shilpa Forms: - Medication Reconciliation Form shilpa - Antibiotic Education shilpa - Prescription Opioid Use shilpa - Patient Portal Instructions [facility] - Leadership Thank You Letter [facility] Prescriptions: - Ibuprofen 600 mg Oral Tablet - take 1 tablet ORAL route every 6 hours As needed take with food; 30 tablet; shilpa Refills: 0, Product Selection Permitted - Zofran 4 mg Oral Tablet - take 1 tablet ORAL route every 12 hours As needed; 20 tablet; Refills: 0, shilpa Product Selection Permitted Signatures: Dispatcher [employer] Jaquan Jurado, Dannielle Hoover MD, cha, RN RN ph Peltier, Brian RN RN bp Bisi John RN RN cc6
[2025-05-06 17:32] VITALS: TEMP 98; O2SAT 100
[2025-05-06 17:39] VITALS: BP 126/67
== END 2025-05-06 14:58 | disposition home or self-care (01) ==
LOC: ER 07:59
DX: R51.9 Headache, unspecified (principal); R11.0 Nausea; G89.29 Other chronic pain; G35.D Multiple sclerosis, unspecified; Z11.52 Encounter for screening for COVID-19
CPT/HCPCS: 96365; 96361; 85025; 36415; 80053; 99284; 96366; 87428; J2405; J2800; J7030

== ENCOUNTER 2025-05-08 07:38 | Day surgery (SDC) | payer OTHER ==
[2025-05-08] MEDS: Ringers Lactate 1,000 ML IV ONE (08:00)
[2025-05-08] MEDS ORDERED: OXYMETAZOLINE HCL 0.05% 30ML NAS ONE (09:02)
[2025-05-08] MEDS ORDERED: NA CHLORIDE 0.9% 500 ML ONE (09:02)
[2025-05-08] MEDS: OXYMETAZOLINE HCL 0.05% 30ML NAS ONE (09:15)
[2025-05-08] MEDS ORDERED: FENTANYL CITR 100 MCG/2 ML ONE (10:47)
[2025-05-08] MEDS ORDERED: ONDANSETRON 4 MG/2 ML VIAL ONE (10:47)
[2025-05-08] MEDS ORDERED: LIDOCAINE 2% MPF 5 ML VIAL ONE (10:47)
[2025-05-08] MEDS ORDERED: MIDAZOLAM HCL 2 MG/2 ML INJ ONE (10:47)
[2025-05-08] MEDS ORDERED: ROCURONIUM 50 MG/5 ML VIAL IV ONE (10:48)
[2025-05-08] MEDS ORDERED: HYDROMORPHONE HCL 1 MG/ML INJ ONE (11:04)
[2025-05-08] MEDS ORDERED: SUGAMMADEX SODIUM 200 MG/2 ML VIAL IV ONE (11:09)
[2025-05-08] MEDS ORDERED: GLYCOPYRROLATE 0.2 MG/ML SYR ONE (11:25)
[2025-05-08] MEDS: LIDOCAINE HCL/EPINEPHRINE 20 ML MDV ONE (11:48)
--- NOTE | 2025-05-08 13:55 | P.OP ---
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 Bilateral turbinate reduction via submucosal and superficial ablation. Nasal endoscopy with biopsy of nasopharynx of visible lesion Surgeon: Keren Wolf MD Informaticist: None Indication for procedure: The patient presented with chronic sinus symptoms including most bothersome symptoms of postnasal drainage and nasal obstruction. On his CT scan, he was noted to have bilateral accessory maxillary ostium resulting in mucus recirculation causing postnasal drainage. Additionally he was noted to have middle turbinate hypertrophy with contra and inferior turbina te hypertrophy.. The risks, benefits, and alternatives to surgical procedure were discussed with the patient and/or family and they agreed to proceed. Surgical findings: Widened middle turbinate consistent with contra. IV Fluids: Crystalloid, see anesthesia record Implants/Packing: PosiSep BAM Estimated Blood Loss: 20 mL Complications: [none] Description of procedure in detail: The patient was brought to the operating room. They were placed under general anesthesia via oral endotracheal tube. The head of bed was turned 90 degrees. The nasal hairs were trimmed. The nasal cavity was examined with the nasal speculum and headlight with the following findings: The patient's anterior septum was essentially midline. There is no visible pus or polyps. The nasal cavity was packed with Afrin-soaked pledgets in preparation for the procedure. The patient was draped in a standard fashion for nasal surgery. A 0 degree endoscope was then used to perform a nasal endoscopy with notable findings of widened middle turbinate worse on the left side. Photo documentation was obtained. The left and right middle turbinates were injected with lidocaine with epinephrine. A sickle knife was used to incise through the head of the left middle turbinate and a straight and curved endoscopic scissor was used to incise through the superior and inferior portion of the stephanie. A straight Blakesley was used to loosen and remove a large portion of the contra from the lateral aspect of the middle turbinate. A small amount of bleeding was noted in the middle meatus was packed with Afrin soaked pledgets. Attention was then turned to the right side where a similar procedure was performed. A sickle knife was used to incise through the head of the right middle turbinate and a straight and curved endoscopic scissor was sought used to incise the superior and inferior portion of the stephanie. A 45 degree through Pavel-Cut was used to incise to the posterior aspect and the bone and mucosal tissue was removed using a Blakesley. The middle meatus was packed with Afrin soaked pledgets to aid in hemostasis. Additionally a small amount of bipolar electrocautery was used along the cut mucosal edge to aid in hemostasis. Attention was then turned to the maxillary sinuses. Both the right and left side were noted to have an intact uncinate with an accessory ostium and visualized mucous recirculating from the accessory ostium. The left side was addressed first. A maxillary seeker was used to palpate and medialized the uncinate process. A backbiter opening to the right was used to incise through the uncinate and a 90 degree Blakesley was used to remove the uncinate and a push pull fashion. A curved suction and 30 degree rigid endoscope were then used for better visualization of the site. The 90 degree Blakesley was also used to remove the tissue between then natural ostium and the accessory ostium creating 1 uniform opening. A side biter opening to the right was also used to remove a small amount of tissue and modification of the antrostomy. Once the antrostomy had been adequately created, Afrin-soaked pledgets were packed into the middle meatus for hemostasis and attention was turned to the right side The right uncinate process was medialized using a maxillary seeker. The backbiter and 90 degree Blakesley were used to incise and remove the uncinate process. Bleeding was encountered and Afrin-soaked pledgets were applied to the middle meatus. While awaiting hemostasis, attention was turned to the left inferior turbinate. The left inferior turbinate was reduced in size using the Coblation platform. The tip of the wand was inserted submucosally into the inferior turbinate and both ablation and coagulation was used to reduce the soft tissue. Additionally along the inferior aspect, the coagulation setting was used to reduce the amount of tissue. Once this was completed attention was returned to the right middle meatus. Previously placed Afrin-soaked pledgets were removed. The 30 degree endoscope was used to visualize the accessory ostium and a 90 degree Blakesley was used to remove tissue between the accessory and natural ostium in order to create 1 uniform antrostomy and eliminate mucus recirculation. Small amount of bipolar electrocautery was applied to the middle turbinate and middle meatus to obtain hemostasis. Once this tissue had been removed, photodocumentation was obtained and attention was turned to the right inferior turbinate. The Coblation wand was used to perform superficial ablation along the medial and inferior inferior aspect of the inferior turbinate in order to reduce its overall size and improve the patient's nasal airway. Finally a 0 degree endoscope was used for visualization of the nasopharynx. There was a rounded area just medial to the right fossa of Rosenmuller with suspicion for cyst versus adenoid tissue. A through cut straight Blakesley was used to obtain a biopsy from this region. This specimen was sent as a separate tissue though there was a low suspicion for neoplasm. Following removal of the biopsy tissue, there was a small cyst cavity with mucus. This was suctioned and the biopsy site was treated with suction Bovie cautery. At the conclusion of the procedure, all pledget counts were confirmed correct. The PosiSep BAM resorbable hemostatic antiseptic dressing was divided and port ions were placed in the left and right middle meatus. They were thoroughly saturated with sterile saline. The nasal cavity and nasopharynx were suctioned and briefly observed. There was no evidence of significant bleeding and the procedure was concluded. The patient was returned to care of anesthesia for awakening extubation in the operating room which proceeded without difficulty. The patient was transported to the recovery room and will be discharged home later today in the care of their family. The patient is given written and verbal instructions regarding the importance of saline irrigations and nasal precautions.
[2025-05-08] MEDS: HYDROCODONE/APAP 10/325 TAB ONE (14:00)
[2025-05-08 14:26] VITALS: BP 144/94; TEMP 97; O2SAT 100
== END 2025-05-08 14:59 | disposition home or self-care (01) ==
LOC: OR 07:38
PROVIDERS: ATTEND Otolaryngology
PROC: 099Q8ZZ Drainage of Right Maxillary Sinus, Via Natural or Artificial Opening Endoscopic (ICD-10-PCS; 2025-05-08)
PROC: 095L8ZZ Destruction of Nasal Turbinate, Via Natural or Artificial Opening Endoscopic (ICD-10-PCS; 2025-05-08)
PROC: 09BK8ZX Excision of Nasal Mucosa and Soft Tissue, Via Natural or Artificial Opening Endoscopic, Diagnostic (ICD-10-PCS; 2025-05-08)
PROC: 09BN8ZX Excision of Nasopharynx, Via Natural or Artificial Opening Endoscopic, Diagnostic (ICD-10-PCS; 2025-05-08)
PROC: 099R8ZZ Drainage of Left Maxillary Sinus, Via Natural or Artificial Opening Endoscopic (ICD-10-PCS; principal; 2025-05-08 09:00)
DX: J32.0 Chronic maxillary sinusitis (principal); R09.82 Postnasal drip; J34.89 Other specified disorders of nose and nasal sinuses; J34.3 Hypertrophy of nasal turbinates; D37.05 Neoplasm of uncertain behavior of pharynx
CPT/HCPCS: 30801; 31267; 31237; 88305; 88311; J2704; J2003; J2250; J3010; J1100; J1171; J2405; J7120; J7040; 88312